=== PATIENT | male | born 1990 | race Caucasian/White ===

== ENCOUNTER 2017-08-09 10:02 | Emergency (ER) | payer OTHER ==
[2017-08-09 10:11] VITALS: BP 133/70
--- NOTE | 2017-08-09 10:37 | ER Document Report ---
HPI - HPI Pain Level: 1 Notes: Patient is a 27-year-old male with no significant past medical history presents ED complaining of left eyelid redness and intermittent irritation on and off for the last couple weeks, but had increased redness over the last 3 days. Patient states that he has no itching associated with it. Patient states that it is contained to his eyelid and does not irritate his eye at all. Patient states that he is able to move his eye around without any difficulties and has not had any changes in his vision. Patient denies any recent illness. He denies any trauma or injury. No other concerns or complaints at this time. Denies any headache, fever, head injury, neck pain, changes in vision/speech/ mentation/hearing, URI, sore throat, chest pain, palpitations, syncope, cough, shortness of breath, wheeze, dyspnea, abdominal pain, nausea/vomiting/diarrhea, urinary retention, dysuria, hematuria, urethral discharge, numbness/tingling, or rash. - ROS Systems Reviewed and Negative: Yes All other systems reviewed and negative Past Medical History - Social History Smoking Status: Never Smoker Family History: Reviewed & Not Pertinent - Immunizations Hx Diphtheria, Pertussis, Tetanus Vaccination: Yes Vertical Provider Document - CONSTITUTIONAL Agree With Documented VS: Yes Notes: PHYSICAL EXAMINATION: GENERAL: Well-appearing, well-nourished and in no acute distress. A&Ox4 HEAD: Atraumatic, normocephalic. EYES: Pupils equal round and reactive to light, extraocular movements intact, sclera anicteric, conjunctiva wnl w/o discharge or matting. Non-tender to palp of the globe and eye itself. Visual acuity 20/20 b/l and in each eye ( performed by myself at bedside with my own eye chart). Non-tender to palp of the eyelid. The left eye lid has mild erythema w/o obvious stye, abscess, or cellulitis associated. Wood's lamp/flourescein: deferred, pt has no complaint aside from the eye lid w /o discharge, tearing, sensation of foreign body, or vision changes. No redness of eye otherwise. ENT: EAC clear b/l. TM's intact b/l without erythema, fluid, or perforation. Nares patent and without discharge. oropharynx clear without exudates. No tonsilar hypertrophy or erythema. Moist mucous membranes. No sinus tenderness. Uvula midline. No palatine shift. No airway compromise. No drooling or hoarseness. NECK: Normal range of motion, supple without lymphadenopathy. No rigidity/ meningismus. LUNGS: Breath sounds clear to auscultation bilaterally and equal. No wheezes rales or rhonchi. HEART: Regular rate and rhythm without murmurs, rubs, gallops. Musculoskeletal: Ext b/l: FROM to passive/active. Strength 5+/5. Extremities: No cyanosis, clubbing, or edema b/l. NEUROLOGICAL: Cranial nerves grossly intact. PSYCH: Normal mood, normal affect. SKIN: Warm, Dry, normal turgor, no rashes or lesions noted. - RESPIRATORY O2 Sat by Pulse Oximetry: 100 Course - Re-evaluation Re-evalutation: 08/09/17 10:35 Patient is an afebrile, well-hydrated, 27-year-old male who presents the ED with left eyelid redness not otherwise specified, suspect possible infection versus benign etiology. Vitals are stable. PE is otherwise unremarkable. As precautionary, I will send him home with a prescription for Polytrim eyedrops. Exam was otherwise unremarkable and he has no tenderness to palpation. 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 I did thoroughly review differential with patient, but do not suspect an emergent condition at this time. Low suspicion for any retained corneal or lid foreign body, deep space infection including orbital cellulitis/ abscess, acute glaucoma, penetrating globe injury, retinal detachment, meningitis, sepsis, fracture, compartment syndrome. I will send home with a prescription for Polytrim to use as directed. Conservative measures otherwise for symptoms with proper handwashing. Recheck with your PCM in 3-5 days. Schedule a f/u with Ophthalmology this week. Return to the ED with any worsening/concerning symptoms otherwise as reviewed in discharge. Patient is in agreement. - Vital Signs Vital signs: Temp Pulse Resp BP Pulse Ox 98.1 F 89 16 133/70 H 100 08/09/17 10:09 08/09/17 10:08/09/17 10:08/09/17 10:08/09/17 10:09 Discharge - Discharge Clinical Impression: Inflammation of left eyelid Condition: Stable Disposition: HOME, SELF-CARE Instructions: Eyedrop Use ([facility]) Additional Instructions: keep eyes clean Avoid scratching/touching eyes Wash hands regularly Use eye drops as directed Maintain adequate fluid intake tylenol/ibuprofen as needed over the counter cold medication as needed for symptoms F/u: with your PCM in 3-5 days for a recheck Schedule an appointment with ophthalmology this week for further evaluation and management Return to the ED with any worsening symptoms and/or development of fever, headache, changes in vision, eye pain, worsening eye redness, redness around the eyes, purulent discharge, sore throat, facial swelling, neck pain/stiffness , chest pain, palpitations, syncope, shortness of breath, trouble breathing, abdominal pain, n/v/d, blood in stool/urine, dysuria, or other worsening symptoms that are concerning to you. Prescriptions: Polymyxin B Sulf/Trimethoprim [Polytrim Eye Drops] 1 drop OD Q3H #10 ml Forms: Elevated Blood Pressure Referrals: HOLLIE THRASHER DO [ACTIVE STAFF] - Follow up as needed LALITA ARTHUR MD [ACTIVE STAFF] - Follow up in 3-5 days
== END 2017-08-09 11:00 | disposition home or self-care (01) ==
LOC: ER 10:02
DX: H01.9 Unspecified inflammation of eyelid (principal)
CPT/HCPCS: 99282